=== PATIENT | female | born 1975 | race Asian ===

== ENCOUNTER 2019-06-10 18:05 | Emergency (ER) | payer OTHER ==
[2019-06-10] MEDS ORDERED: MORPHINE SULFATE 4 MG/ML SYRINGE IM STA (18:39)
[2019-06-10 18:50] VITALS: TEMP 97.8
[2019-06-10] MEDS ORDERED: HYDROmorphone 1 MG/ML 1 ML SYRINGE IM STA (19:01)
--- NOTE | 2019-06-10 19:33 | XR ---
EXAMINATION TYPE: XR ankle complete RT DATE OF EXAM: 06/10/2019 COMPARISON: None HISTORY: Pain swelling TECHNIQUE: Three-view right ankle FINDINGS: No acute fractures are evident. Joint spaces appear preserved. The ankle mortise is intact. There is prominent soft tissue swelling over the lateral malleolus. Follow-up exams can be performed 7-10 days from acute trauma for continued pain. IMPRESSION: 1. Prominent soft tissue swelling lateral malleolus. 2. Follow-up examinations to reevaluate for fractures can be performed 7-10 days from acute trauma fo r continued pain.
--- NOTE | 2019-06-10 19:39 | XR ---
EXAMINATION TYPE: XR tibia fibula RT DATE OF EXAM: 06/10/2019 COMPARISON: None HISTORY: Right ankle swelling TECHNIQUE: 2 view right tibia and fibula FINDINGS: Right tibia and fibula are examined in 2 projections. The ankle portion is included on the ankle study performed at the same time. No acute fractures or dislocations are evident. The knee joint space appears unremarkable. IMPRESSION: 1. Normal tibia and fibula as visualized. 2. Soft tissue swelling over the lateral malleolus is faintly visualized at the edge the [id number] w.
--- NOTE | 2019-06-10 19:45 | XR ---
EXAMINATION TYPE: XR foot complete RT DATE OF EXAM: 06/10/2019 COMPARISON: None HISTORY: Right ankle swelling after rolling, pain TECHNIQUE: Three-view right foot FINDINGS: No acute fractures are evident. Joint spaces are preserved. Soft tissues of the foot appear normal. The soft tissue swelling over the lateral malleolus is readily apparent. IMPRESSION: 1. Soft tissue swelling over lateral malleolus. 2. No acute osseous abnormality within the foot. 3. Follow-up exams can be performed 7-10 days from acute trauma for continued pain.
--- NOTE | 2019-06-10 19:46 | ED ---
General Adult HPI - General Chief complaint: Extremity Injury, Lower Stated complaint: rt ankle injury Time Seen by Provider: 06/10/19 18:19 Source: patient, RN notes reviewed, old records reviewed Mode of arrival: wheelchair Limitations: no limitations - History of Present Illness Initial comments: 44-year-old female patient [place] chief complaint of right ankle injury. Patient reports she was coughing, she stepped in a hole, suffered a right ankle inversion injury. Patient reports that she has pain in the lateral malleolus of the right ankle. Patient also complains of some midshaft tibia/fibular pain. Denies any trauma to head or neck. Denies any other complaints. Systemic: Pt denies fatigue, fever/chills, rash. Pt denies weakness, night sweats, weight loss. Neuro: Pt denies headache, visual disturbances, syncope or pre-syncope. HEENT: Pt denies ocular discharge or irritation, otalgia, rhinorrhea, pharyngitis or notable lymphadenopathy. Cardiopulmonary: Pt denies chest pain, SOB, heart palpitations, dyspnea on exertion. Abdominal/GI: Pt denies abdominal pain, n/v/d. : Pt denies dysuria, burning w/ urination, frequency/urgency. Denies new onset urinary or bowel incontinence. MSK: Pt denies myalgia, loss of strength or function in extremities. Neuro: Pt denies new onset weakness, paresthesias. - Related Data Allergies Allergy/AdvReac Type Severity Reaction Status Date / Time Penicillins Allergy Unknown Verified 06/10/19 19:07 Sulfa (Sulfonamide Allergy Unknown Verified 06/10/19 19:07 Antibiotics) Review of Systems ROS Statement: Those systems with pertinent positive or pertinent negative responses have been documented in the HPI. ROS Other: All systems not noted in ROS Statement are negative. 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 HEENT: NC/AT, trachea midline, neck supple, no lymphadenopathy. Posterior pharynx non erythematous, without exudates. External ears appear normal, without discharge. Mucous membranes moist. Eyes PERRLA, EOM intact. There is no scleral icterus. No pallor noted. Cardiopulmonary: RRR, no murmurs, rubs or gallops, no JVD noted. Lungs CTAB in anterior and posterior wheat. No peripheral edema. Abdominal exam: Abdomen soft and non-distended. Abdomen non-tender to palpation in all 4 quadrants. Bowel sounds active in LLQ. No hepatosplenomegaly. No ecchymosis Neuro: CN II-XII grossly intact. No nuchal rigidity. No raccon eyes, no vilchis sign, no hemotympanum. No cervical spinal tenderness. MSK: Soft tissue swelling at right lateral malleolus. Tender to palpation. Mild amount of midshaft tibia-fibula tenderness. Mild amount of dorsal foot tenderness. Neurovascular intact. Patient placed in a posterior ankle splint. Neurovascular intact after splint placement. No posterior calf tenderness b ilaterally, homans sign negative bilaterally. Posterior tibialis and radial pulse +2 bilaterally. Sensation intact in upper and lower extremities. Full active ROM in upper and lower extremities, 5/5 stregnth. Limitations: no limitations Course Vital Signs 06/10/19 18:24 Temperature 97.8 F Pulse Rate 102 H Respiratory 18 Rate Blood Pressure 122/75 O2 Sat by Pulse 98 Oximetry Medical Decision Making - Medical Decision Making 44-year-old male patient [place] chief complaint right ankle injury. Patient reports initial for the right ankle inversion injury stepping on a wall coughing. Patient also in stable, afebrile. Physical exam slight soft tissue swelling over lateral malleolus, tender to palpation. Neurovascularly intact. Plain films tibia fibula, right ankle, right foot were negative. Patient placed in posterior ankle splint. Vascular intact after splint placement. Will be discharged with orthopedic follow-up. Case discussed with Dr. Albert. Disposition Clinical Impression: Ankle sprain Disposition: HOME SELF-CARE Condition: Stable Instructions (If sedation given, give patient instructions): Ankle Sprain (ED) Additional Instructions: Patient to adhere to previously discussed treatment plan and will take medication(s) as directed. Patient to follow up with PCP in 1-2 days. Patient to return to ED if symptoms do not improve. Follow-up and orthopedic follow-up on Wednesday. Continue to wear splint. Do not bear weight and right lower extremity. Use crutches. Return to ER if condition worsens. Is patient prescribed a controlled substance at d/c from ED?: No Referrals: Nonstaff,Physician [Primary Care Provider] - 1-2 days Tyson Estrada, PAC [PHYSICIAN INSULATION WORKER [employer]] - 1-2 days
[2019-06-10] MEDS ORDERED: ONDANSETRON ODT 4 MG TAB PO STA (19:52)
--- NOTE | 2019-06-10 20:03 | ED ---
Medical Decision Making - Medical Decision Making The patient request patient discharged with 3 days of Ultram for pain. Patient reports that with tylenol 3 and [place] she gets upset stomach, nausea and vomiting. Patient has been able to take Ultram without difficulty. Opoid consent form completed. Disposition Clinical Impression: Ankle sprain Disposition: HOME SELF-CARE Condition: Stable Instructions (If sedation given, give patient instructions): Ankle Sprain (ED) Additional Instructions: Patient to adhere to previously discussed treatment plan and will take medication(s) as directed. Patient to follow up with PCP in 1-2 days. Patient to return to ED if symptoms do not improve. Follow-up and orthopedic follow-up on Wednesday. Continue to wear splint. Do not bear weight and right lower extremity. Use crutches. Return to ER if condition worsens. Prescriptions: traMADol HCl [Ultram] 50 mg PO Q6HR PRN 3 Days #12 tab PRN Reason: as needed for pain Is patient prescribed a controlled substance at d/c from ED?: Yes When asked, does pt state using other controlled substances?: No If prescribed controlled substance>3 days was MAPS reviewed?: Prescribed <3 Days If opioid is for acute pain is fill amount 7 days or less?: Yes If Rx opioid, was Start Talking consent form obtained?: Yes Referrals: Tyson Estrada PAC [PHYSICIAN PADDED BOX SEWER] - 1-2 days Nonstaff,Physician [Primary Care Provider] - 1-2 days
[2019-06-10 20:30] VITALS: BP 124/61; PULSE 68; RESP 17
== END 2019-06-10 20:30 | disposition home or self-care (01) ==
LOC: EC 18:05
DX: S93.401A Sprain of unspecified ligament of right ankle, initial encounter (principal); R05 Cough; F17.200 Nicotine dependence, unspecified, uncomplicated; Z88.0 Allergy status to penicillin; Z88.2 Allergy status to sulfonamides; W01.0XXA Fall on same level from slipping, tripping and stumbling without subsequent striking against object, initial encounter; Y93.53 Activity, golf; Y92.89 Other specified places as the place of occurrence of the external cause
CPT/HCPCS: 73590; 73610; 73630; 99284; 29515; 96372 ×2; L4350; J2270; J1170